=== PATIENT | male | born 1995 | race Two or more races ===

== ENCOUNTER 2020-01-20 19:27 | Emergency (ER) | payer OTHER, SELFPAY ==
--- NOTE | 2020-01-20 | XR_ITS ---
EXAMINATION: XR CHEST CLINICAL INFORMATION: Cough. COMPARISON: None TECHNIQUE: Frontal portable view of the chest was obtained. 8:06 PM FINDINGS: No significant abnormality is noted involving the heart, lungs, mediastinum, bony thorax or soft tissues. XR/XR chest 1V IMPRESSION: Unremarkable examination.
[2020-01-20 19:45] VITALS: BP 150/85; PULSE 98; RESP 18; TEMP 36.7; O2SAT 99; BMI 29.2
--- NOTE | 2020-01-20 20:04 | ED.URI ---
HPI - URI/Sore Throat General Chief Complaint: Upper Respiratory Symptoms Stated Complaint: covid symptoms Time Seen by Provider: 01/20/20 19:53 Source: patient Mode of arrival: ambulatory Limitations: language barrier History of Present Illness HPI Narrative: 24-year-old male with past medical history of asthma presents with 1 day of upper respiratory symptoms. States that his chest feels tight and that his asthma symptoms are persistent even with inhaler use. he does have a cough, nasal congestion, and sore throat. He does not report any palpitations, abdominal pain, abdominal distention, fevers, chills, nausea, vomiting, diarrhea, dysuria, and hematuria. MD elicited complaint: cough, sore throat and nasal congestion Pertinent past history: asthma Onset (ago): day(s) ( One) Consistency: constant Severity: moderate Description of mucous: clear Able to tolerate fluids by mouth: Yes Relieving factors: nothing Associated symptoms: denies other symptoms Related Data Previous Rx's Medication Instructions Recorded benzonatate [Tessalon Perles] 100 mg PO TID PRN #20 cap 01/20/20 Allergies Allergy/AdvReac Type Severity Reaction Status Date / Time SEAFOOD Allergy Unknown UNK Uncoded 01/20/20 19:48 Review of Systems Review of Systems: Constitutional: No Fever, No Chills ENT/Mouth: No Hoarseness, No sore throat, No Rhinorrhea Eyes: No Redness, No Discharge, No Vision Changes Cardiovascular: No Chest Pain, positive SOB, positive Dyspnea on Exertion, No Edema Respiratory: positive Cough, No Sputum, positive Wheezing, Gastrointestinal: No Nausea, No Vomiting, No Diarrhea, No abdominal Pain Genitourinary: No Dysuria, No Hematuria Musculoskeletal: No joint pain, No Myalgias Skin: No rash Neuro: No Weakness, No Numbness, No Headache Psych: No anxiety, depression Heme/Lymph: No Bruising, No Bleeding Endocrine: No Polyuria, No Polydipsia PMFSH Past Medical History Attestation statement: The following information was validated with the patient. Medical History Asthma Social History Social History Advance Directives: No Advance Directives Information Provided: No Physical Exam Vital Signs: Vital Signs: Vital Signs Temp Pulse Resp BP Pulse Ox 11/03/20 19:45 98.0 F 98 18 150/85 H 99 Body Mass Index 29.2 Appearance: Alert. Oriented X3. No acute distress. Eyes: Pupils equal, round and reactive to light. ENT: Pharynx normal. Neck: Normal inspection. Neck supple. CVS: Normal heart rate and rhythm. Pulses normal. Respiratory: No respiratory distress. Even unlabored respirations at 16 per minute. Breath sounds expiratory wheezing bilateral bases. Abdomen: Soft and nontender. Skin: Skin warm and dry. Normal skin color. Normal skin turgor. Extremities: No lower extremity edema. Neuro: No motor deficit. No sensory deficit. Course Course Course Narrative: plan is for chest x-ray and COVID-19 testing. Respirations are even, unlabored 16 per minute, no indication of asthma exacerbation at this time. O2 sat 99% on room air. Mild expiratory wheezing at bases. Chest x-ray is normal, COVID-19 test still pending. Patient will be discharged home with supportive measures. He does verbalize understanding of state Federal regulations for COVID-19 isolation. Symptoms are most likely viral syndrome, possible COVID-19, less likely pneumonia. strap folding machine operator utilized for all correspondence. Google translate utilized for discharge instructions. MDM - URI/Sore Throat Differential Diagnosis Differential diagnosis: Likely upper respiratory infection, viral infection, bronchitis, influenza and pharyngitis Medical Records Attestation: I reviewed the patient's medical records. Lab Data Attestation: I reviewed the patient's lab results. Imaging Data Chest x-ray: Attestation: I personally reviewed and interpreted this imaging study as follows: Radiologist's impression: EXAMINATION: XR CHEST CLINICAL INFORMATION: Cough. COMPARISON: None TECHNIQUE: Frontal portable view of the chest was obtained. 8:06 PM FINDINGS: No significant abnormality is noted involving the heart, lungs, mediastinum, bony thorax or soft tissues. XR/XR chest 1V IMPRESSION: Unremarkable examination. Discharge Plan Discharge Clinical Impression: Viral infection Upper respiratory infection Qualifiers: URI type: unspecified viral URI Qualified Code(s): J06.9 - Acute upper respiratory infection, unspecified Patient Disposition: Home, Self-Care Instructions: Upper Respiratory Infection (ED), Viral Syndrome (ED), COVID-19 (Coronavirus Disease 2019) (ED) Additional Instructions: se le evaluaron para los s?ntomas de las v?as respiratorias superiores. Le hemos probado para COVID-19. Por favor, mantenga el aislamiento seg?n las pautas estatales y federales. Use inhalador de albuterol seg?n sea necesario. Si los s?ntomas persisten o empeoran, por favor regrese al departamento de emergencias para recibir m?s atenci?n. Sánchez por elegir carmen departamento de emergencias para la evaluaci?n. Por favor, ray un seguimiento con el m?dico de atenci?n primaria seg?n sea necesario. Regrese al servicio de urgencias para cualquier s?ntoma nuevo, preocupante o que empeore. you were evaluated for upper respiratory symptoms. We tested you for COVID-19. Please maintain isolation per State And Federal guidelines. Use albuterol inhaler as needed. If symptoms persist or get worse please return to the emergency department for further care. Thank you for choosing this emergency department for evaluation. Please follow-up with primary care physician as needed. Return to the emergency department for any new, concerning, or worsening symptoms. Prescriptions: New benzonatate [Tessalon Perles] 100 mg capsule 100 mg PO TID PRN (Reason: cough) Qty: 20 RF: 0 Print Language: Kinyarwanda
--- NOTE | 2020-01-20 20:48 | PC.NURSE ---
Pt awaiting covid result. non-diagnostic cxr results back and explained to pt by CYLINDER MACHINE OPERATOR PULP DRIER. plan for updraft and discharge
[2020-01-20] MEDS: Albuterol Sulfate 90 MCG 8 GM INHALER 2 PUFF INHALE (20:55)
== END 2020-01-20 21:15 | disposition home or self-care (01) ==
PROVIDERS: Nurse Practitioner Family; Emergency Provider Internal Medicine
DX: B34.9 Viral infection, unspecified (principal); J45.909 Unspecified asthma, uncomplicated; Z20.828 Contact with and (suspected) exposure to other viral communicable diseases
CPT/HCPCS: 71045; 99283; 99284; U0003

== ENCOUNTER 2020-02-21 18:48 | Emergency (ER) | payer OTHER, SELFPAY ==
[2020-02-21 19:14] VITALS: BP 119/79; PULSE 113; RESP 18; TEMP 36.7; O2SAT 99; BMI 37.3
[2020-02-21 20:34] LABS: Appearance Urine CLEAR; Color Urine YELLOW; Glucose Urine UA NEG (NEG); Leukocyte Esterase Urine NEG (NEG); Nitrite Urine NEG (NEG); Specific Gravity - Urine >= 1.030 (1.005-1.025); Urine Blood NEG (NEG); Urine Ketones NEG (NEG); Urine Protein NEG (NEG-TRACE)
--- NOTE | 2020-02-21 20:37 | ED.MALEGU ---
HPI - Male Genitourinary General Chief complaint: Urogenital-Male Stated complaint: Flank pain Time Seen by Provider: 02/21/20 21:34 Source: patient Mode of arrival: ambulatory Limitations: no limitations History of Present Illness HPI Narrative: 24-year-old male with past medical history of kidney stones presents with left flank pain that started yesterday. States the pain started in the right lower quadrant and radiates around to the left flank. He does have intermittent sweating and felt hot several times Over the past day but did not take a temperature. He denies chest pain or pressure, palpitations, abdominal distention, dysuria, hematuria, trauma, edema, and chills. Onset (ago): day(s) (1) Duration: intermittent Location: left inguinal region and left flank Severity: moderate Severity scale (1-10): 7 Quality: aching, sharp and stabbing Relieving factors: none Associated symptoms: Reports denies other symptoms Related Data Previous Rx's Medication Instructions Recorded benzonatate [Tessalon Perles] 100 mg PO TID PRN #20 cap 01/20/20 Allergies Allergy/AdvReac Type Severity Reaction Status Date / Time seafood AdvReac Dizziness Verified 02/21/20 19:14 Review of Systems Review of Systems: Constitutional: No Fever, No Chills ENT/Mouth: No sore throat Eyes: No Eye Pain, No Swelling, No Redness Cardiovascular: No Chest Pain, No SOB Respiratory: No Cough, No Sputum, No Wheezing Gastrointestinal: No Nausea, no Vomiting, No Diarrhea, positive abdominal pain Genitourinary: no Dysuria, no urinary frequency, no Hematuria, positive Flank Pain, no hesitancy Musculoskeletal: No joint pain, No Myalgias Skin: No Skin Lesions, No rash Neuro: No Weakness, No Numbness, No Headache Psych: No Anxiety/Panic, No Depression Heme/Lymph: No Bruising, No Lymphadenopathy Endocrine: No Polyuria, No Polydipsia Yes all other systems are reviewed and are negative [facility] Past Medical History Attestation statement: The following information was validated with the patient. Source: old records reviewed Medical History Asthma Social History Social History Advance Directives: No Advance Directives Information Provided: Yes Physical Exam Vital Signs: Vital Signs: Last Vital Signs Temp 98.0 F 02/21/20 19:14 Pulse 84 02/21/20 22:00 Resp 18 02/21/20 22:00 BP 140/65 H 02/21/20 22:00 Pulse Ox 100 02/21/20 22:00 Body Mass Index 37.3 Appearance: Alert. Oriented X3. No acute distress. Eyes: Pupils equal, round and reactive to light. ENT: Pharynx normal. Neck: Normal inspection. Neck supple. CVS: Normal heart rate and rhythm. Pulses normal. Respiratory: No respiratory distress. Breath sounds normal. Abdomen: Soft and tender to palpation to the left lower quadrant, positive CVA tenderness to the left side Skin: Skin warm and dry. Normal skin color. Normal skin turgor. Extremities: No lower extremity edema. Neuro: No motor deficit. No sensory deficit. Course Course Course Narrative: 24-year-old male with past medical history of kidney stones presents with left flank pain. Plan of care is for CBC, Chem 7, LFTs, lipase and CT scan of the abdomen. CT scan is negative for acute findings requiring emergent intervention however does indicate fatty liver disease. CBC normal, gap 11, BUN 8, AST 412, ALT 444. urinalysis is negative. Plan of care is for patient to follow-up with primary care physician for fatty liver disease and elevated liver enzymes. We did give her referral for Gastroenterology if he chooses. Patient verbalized understanding of and agrees to plan of care discharge home. dependency director utilized for all correspondence, Google translate utilized for discharge instructions. MDM - Male Genitourinary MDM Narrative Medical decision making narrative: Renal colic, hydronephrosis, constipation, pancreatitis, liver disease Differential Diagnosis Differential diagnosis: Likely urinary tract infection and inguinal hernia Medical Records Attestation: I reviewed the patient's medical records. Lab Data Attestation: I reviewed the patient's lab results. Result diagrams: 02/21/20 20:57 02/21/20 20:57 Labs: Lab Results 02/21/20 02/21/20 02/21/20 Range/Units 20:27 20:57 20:57 WBC 7.3 (4.8-10.8) X10*3/uL RBC 5.14 (4.60-5.80) X10*6/uL Hgb 13.9 L (14.0-18.0) g/dl Hct 42.5 (42-52) % MCV 82.7 (80-98) fL MCH 27.0 (27.0-33.0) pg MCHC 32.7 (31.0-36.0) g/dl RDW 14.4 (11.0-16.0) % Plt Count 278 (160-400) X10*3/uL MPV 8.9 L (9.4-12.4) fL Immature Gran % (Auto) 1.5 H (0.0-0.4) % Neut % (Auto) 59.9 (45-73) % Lymph % (Auto) 22.3 (20-40) % [place] % (Auto) 13.5 H (2-11) % Eos % (Auto) 2.2 (0-4) % Baso % (Auto) 0.6 (0-2) % Lymph # (Auto) 1.6 (1.2-4.9) X10*3/uL [place] # (Auto) 1.0 (0.1-1.2) X10*3/uL Eos # (Auto) 0.2 (0.0-0.4) X10*3/uL Baso # (Auto) 0.0 (0.0-0.2) X10*3/uL Abs Immat Gran (auto) 0.11 H (0.00-0.03) X10*3/uL Absolute Neuts (auto) 4.4 (2.0-8.3) X10*3/uL Absolute Nucleated RBC 0.000 (0.0-0.012) X10*3/uL Nucleated RBC % (auto) 0.0 (0.0-0.2) /100WBC Sodium 135 (135-145) mmol/L Potassium 3.9 (3.3-5.1) mmol/l Chloride 101 (96-108) mmol/L Carbon Dioxide 27 (22-29) mmol/L Anion Gap 11 L (12-20) BUN 8 L (9-16) mg/dL Creatinine 0.91 (0.5-1.4) mg/dL Estim Creat Clear Calc 194.1 Estimated GFR > 60 Random Glucose 84 (60-115) mg/dL Calcium 9.2 (8.4-10.2) mg/dL Total Bilirubin 0.6 (0.0-1.0) mg/dL Direct Bilirubin 0.2 (0.0-0.5) mg/dL AST 412 H (5-37) U/L ALT 444 H (0-40) U/L Alkaline Phosphatase 58 (39-117) U/L Total Protein 7.9 (6.5-8.0) g/dL Albumin 4.3 (3.5-5.0) g/dL Lipase 22 (8-78) U/L Urine Color YELLOW Urine Appearance CLEAR Urine pH 6.0 (5.0-8.0) Ur Specific [place] >= 1.030 H (1.005-1.025) Urine Protein NEG (NEG-TRACE) MG/DL Urine Glucose (UA) NEG (NEG) MG/DL Urine Ketones NEG (NEG) MG/DL Urine Blood NEG (NEG) Urine Nitrite NEG (NEG) Ur Leukocyte Esterase NEG (NEG) Imaging Data CT scan - abdomen: Attestation: I personally reviewed and interpreted this imaging study as follows: Radiologist's impression: FINDINGS: LUNG BASES: The visualized lung bases are unremarkable. LIVER, GALLBLADDER, AND BILIARY TREE: The liver is enlarged measuring 21.8 cm in greatest length. Again seen is hepatic steatosis with focal fatty sparing around the gallbladder. No focal liver mass is seen and no bile duct dilatation is present. The gallbladder is unremarkable with no evidence of radiopaque gallstones, gallbladder wall thickening, or obvious pericholecystic inflammatory changes. PANCREAS: Unremarkable. SPLEEN: Unremarkable. ADRENAL GLANDS: Unremarkable. KIDNEYS AND URETERS: The kidneys are normal in size, shape, and attenuation. No hydronephrosis, hydroureter, or calculi seen. No perinephric stranding. BLADDER: Unremarkable. GASTROINTESTINAL TRACT: The small and large bowel are unremarkable. The appendix is unremarkable. ABDOMINAL WALL: No significant hernia is appreciated. LYMPH NODES: Normal. VASCULAR: Unremarkable. PELVIC VISCERA: Unremarkable. OSSEOUS STRUCTURES: Unremarkable. CT/CT abdomen pelvis wo con IMPRESSION: Enlarged fatty liver Discharge Plan Discharge Clinical Impression: Acute left flank pain, NAFLD (nonalcoholic fatty liver disease) Abdominal pain Qualifiers: Abdominal location: left lower quadrant Qualified Code(s): R10.32 - Left lower quadrant pain Patient Disposition: Home, Self-Care Instructions: Non-Alcoholic Fatty Liver Disease (ED) Additional Instructions: se le evalu? para el dolor en el flanco zen. La tomograf?a computarizada es negativa para los c?lculos renales o los hallazgos que necesitan intervenci?n emergente. Arielle laboratorios indican un AST elevado de 412 y aravind ALT de 444, la tomograf?a computarizada muestra enfermedad del h?gado graso. Por favor, ray un seguimiento con el m?dico de atenci?n primaria para obtener m?s atenci?n. tambi?n hicimos aravind referencia a Gastroenterolog?a. Llame y ray aravind peña. Sánchez por elegir carmen departamento de emergencias para la evaluaci?n. Por favor, ray un seguimiento con el m?dico de atenci?n primaria seg?n sea necesario. Regrese al servicio de urgencias para cualquier s?ntoma nuevo, preocupante o que empeore. you were evaluated for left flank pain. CT scan is negative for kidney stone or findings needing emergent intervention. Your labs indicate an elevated AST of 412 and an ALT of 444, CT scan shows fatty liver disease. Please follow-up with primary care physician for further care. we also made a referral to Gastroenterology. Please call and make an appointment. Thank you for choosing this emergency department for evaluation. Please follow-up with primary care physician as needed. Return to the emergency department for any new, concerning, or worsening symptoms. Prescriptions: No Action benzonatate [Tessalon Perles] 100 mg capsule 100 mg PO TID PRN (Reason: cough) Qty: 20 RF: 0 Referrals: Alfredito García MD [Physician] - 2 days Interventions: ED Discharge Assessment Last Done: 02/21/20 22:50 Discharge Date/Time: 02/21/20 22:53
--- NOTE | 2020-02-21 20:38 | CT_ITS ---
EXAMINATION: CT ABDOMEN AND PELVIS WITHOUT CONTRAST CLINICAL INFORMATION: Left flank pain COMPARISON: Abdominal ultrasound 01/31/2019 TECHNIQUE: Multidetector volumetric imaging was performed from the superior aspect of the liver through the pubic symphysis. Sagittal and coronal reformatted images were obtained on the technologist's workstation. This CT examination was performed using dose optimization techniques as appropriate, variously including the following: *Automated exposure control *Adjustment of mA and/or kV according to patient size (this includes techniques or standardized protocols for targeted exams where dose is matched to indication/reason for exam; i.e. extremities or head) *Use of iterative reconstruction technique DLP: 1185 mGy-cm FINDINGS: LUNG BASES: The visualized lung bases are unremarkable. LIVER, GALLBLADDER, AND BILIARY TREE: The liver is enlarged measuring 21.8 cm in greatest length. Again seen is hepatic steatosis with focal fatty sparing around the gallbladder. No focal liver mass is seen and no bile duct dilatation is present. The gallbladder is unremarkable with no evidence of radiopaque gallstones, gallbladder wall thickening, or obvious pericholecystic inflammatory changes. PANCREAS: Unremarkable. SPLEEN: Unremarkable. ADRENAL GLANDS: Unremarkable. KIDNEYS AND URETERS: The kidneys are normal in size, shape, and attenuation. No hydronephrosis, hydroureter, or calculi seen. No perinephric stranding. BLADDER: Unremarkable. GASTROINTESTINAL TRACT: The small and large bowel are unremarkable. The appendix is unremarkable. ABDOMINAL WALL: No significant hernia is appreciated. LYMPH NODES: Normal. VASCULAR: Unremarkable. PELVIC VISCERA: Unremarkable. OSSEOUS STRUCTURES: Unremarkable. CT/CT abdomen pelvis wo con IMPRESSION: Enlarged fatty liver
[2020-02-21 21:04] LABS: MANUAL DIFF FLAG NO
[2020-02-21 21:07] LABS: Basophils Percent Auto 0.6 % (0-2); Eosinophils Absolute Auto 0.2 X10*3/uL (0.0-0.4); Eosinophils Percent Auto 2.2 % (0-4); Hematocrit 42.5 % (42-52); Hemoglobin 13.9 g/dl (14.0-18.0); Imm Gran Abs Auto 0.11 X10*3/uL (0.00-0.03); Imm Gran Pct Auto 1.5 % (0.0-0.4); Lymphocytes Absolute Auto 1.6 X10*3/uL (1.2-4.9); Lymphocytes Percent Auto 22.3 % (20-40); Mean Corpuscular HGB Conc 32.7 g/dl (31.0-36.0); Mean Corpuscular Volume 82.7 fL (80-98); Mean Platelet Volume 8.9 fL (9.4-12.4); Monocytes Percent Auto 13.5 % (2-11); Neutrophils Absolute Auto 4.4 X10*3/uL (2.0-8.3); Neutrophils Percent Auto 59.9 % (45-73); Platelet Count 278 X10*3/uL (160-400); Red Blood Count 5.14 X10*6/uL (4.60-5.80); Red Cell Distribution Width 14.4 % (11.0-16.0); White Blood Count 7.3 X10*3/uL (4.8-10.8)
[2020-02-21] MEDS: 0.9 % Sodium Chloride 1,000 ML 999 ML IVCONT (21:38)
[2020-02-21 21:39] LABS: Alanine Aminotransferase 444 U/L (0-40); Albumin Level 4.3 g/dL (3.5-5.0); Alkaline Phosphatase 58 U/L (39-117); Anion Gap 11 (12-20); Aspartate Amino Transferase 412 U/L (5-37); Bilirubin Direct 0.2 mg/dL (0.0-0.5); Bilirubin Total 0.6 mg/dL (0.0-1.0); Blood Urea Nitrogen 8 mg/dL (9-16); Calcium 9.2 mg/dL (8.4-10.2); Carbon Dioxide 27 mmol/L (22-29); Chloride 101 mmol/L (96-108); Creatinine Clr Calc Pharmacy 194.1; Estimated Glomerular Filt Rate > 60; Glucose Random 84 mg/dL (60-115); Lipase 22 U/L (8-78); Potassium 3.9 mmol/l (3.3-5.1); Sodium 135 mmol/L (135-145); Total Protein 7.9 g/dL (6.5-8.0)
[2020-02-21] MEDS: Tamsulosin HCL 0.4 MG CAPSULE PO (21:39)
[2020-02-21] MEDS: predniSONE 20 MG TABLET PO (21:39)
[2020-02-21] MEDS: Ketorolac Tromethamine 30 MG/ML VIAL IVPUSH (21:39)
[2020-02-21 22:00] VITALS: BP 140/65; PULSE 84; RESP 18; O2SAT 100
== END 2020-02-21 22:53 | disposition home or self-care (01) ==
PROVIDERS: Nurse Practitioner Family; Emergency Provider Emergency Medicine; PCP Internal Medicine
DX: R10.32 Left lower quadrant pain (principal); R10.9 Unspecified abdominal pain; K76.0 Fatty (change of) liver, not elsewhere classified; J45.909 Unspecified asthma, uncomplicated; Z87.442 Personal history of urinary calculi
CPT/HCPCS: 36415; 74176; 80048; 80076; 81003; 83690; 85025; 96361; 96374; 99284; J1885

== ENCOUNTER 2020-02-25 10:14 | Outpatient (REF) | payer OTHER, SELFPAY | END 2020-02-25 10:15 | disposition home or self-care (01) | LOC: HO.LAB 10:14 | PROVIDERS: Visit Provider Internal Medicine | DX: Z20.828 Contact with and (suspected) exposure to other viral communicable diseases (principal) | CPT/HCPCS: C9803; U0003 ==

== ENCOUNTER 2020-03-09 16:38 | Outpatient (REF) | payer OTHER, SELFPAY | END 2020-03-09 16:39 | disposition home or self-care (01) | LOC: HO.LAB 16:38 | PROVIDERS: Visit Provider Internal Medicine | DX: Z20.828 Contact with and (suspected) exposure to other viral communicable diseases (principal) | CPT/HCPCS: C9803; U0003 ==

== ENCOUNTER 2020-07-16 18:27 | Emergency (ER) | payer OTHER, SELFPAY ==
[2020-07-16 18:53] VITALS: BP 130/70; PULSE 60; O2SAT 95
== END 2020-07-16 18:53 | disposition left against medical advice (07) ==
PROVIDERS: Emergency Provider Emergency Medicine
DX: R06.02 Shortness of breath (principal); J45.909 Unspecified asthma, uncomplicated

== ENCOUNTER 2022-08-20 20:22 | Emergency (ER) | payer OTHER, SELFPAY ==
--- NOTE | ~2022-08-20 | XR_ITS ---
EXAMINATION: XR CHEST, 2 VIEWS CLINICAL INFORMATION: Chest pain COMPARISON: 01/20/2020 TECHNIQUE: PA and lateral views of the chest were obtained. FINDINGS: Mild dependent atelectasis at the left base. No consolidation, pneumothorax, or pleural effusion. Cardiac and mediastinal contours are normal. Pulmonary vasculature is unremarkable. Trachea is midline. Osseous structures are unremarkable. XR/XR chest 1V IMPRESSION: No acute cardiopulmonary findings.
[2022-08-20 20:31] VITALS: BP 143/85; PULSE 102; RESP 18; TEMP 36.2; O2SAT 96; BMI 36.1
--- NOTE | 2022-08-20 20:32 | ED.GENADULT ---
HPI - General Adult General Chief complaint: Chest Pain Stated complaint: chest pain Time Seen by Provider: 08/20/22 21:10 Source: patient and family Mode of arrival: ambulatory Limitations: no limitations History of Present Illness HPI narrative: 27-year-old male came in for evaluation of left-sided chest pain started 2 days ago. 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 Daughter was sick last week with some viral infection and fever. Related Data Previous Rx's Medication Instructions Recorded acetaminophen 500 mg tablet 500 - 1,000 mg PO Q6H PRN pain #30 08/03/21 tabs cyclobenzaprine 5 mg tablet 5 mg PO BEDTIME #14 tabs 08/03/21 diclofenac sodium 1 % topical gel 2 g topical QID #100 grams 08/03/21 (Voltaren Arthritis Pain) nabumetone 500 mg tablet 500 mg PO BID #30 tabs 08/03/21 Allergies Allergy/AdvReac Type Severity Reaction Status Date / Time shellfish derived Allergy Anaphylaxis Verified 08/20/22 21:42 seafood AdvReac Dizziness Verified 08/20/22 20:31 Review of Systems Review of Systems: All other systems are reviewed and are negative Constitutional: Reports as per HPI and Reports no additional constitutional complaints Eyes: Reports as per HPI and Reports no additional eye complaints Reports system reviewed and no additional complaints, except as documented Cardiovascular: Reports as per HPI and Reports no additional cardiovascular complaints Respiratory: Reports as per HPI and Reports no additional respiratory complaints Gastrointestinal: Reports as per HPI and Reports no additional gastrointestinal complaints Genitourinary: Reports no additional female genitourinary complaints Musculoskeletal: Reports no additional musculoskeletal complaints Skin/Breast: Reports system reviewed and no additional complaints, except as docu Psychiatric: Reports no additional psychiatric complaints Endocrine: Reports no additional endocrine complaints Hematologic/Lymphatic: Reports no additional hematologic/lymphatic complaints Allergic/Immunologic: Reports no additional allergic/immunologic complaints Reports system reviewed and no additional complaints, except as documented and Reports Abnormal speech present [facility] Past Medical History Medical History Asthma Surgical History Hx of bilateral breast reduction surgery Family History Family History Mother Hypertension Panic attacks Mental health disorder Father Hypertension Social History Social History Housing: Apartment Alcohol intake: former Patient Tobacco Use Status: Never used Tobacco Smoked in Last 30 Days: Yes e-Cigarette/Vaping Use: Never Used Second Hand Smoke Exposure: No Use of substances other than those prescribed or required for medical reasons: Yes Substance Use Type: Marijuana Substance Use Frequency: Chronic Longstanding Last Used Substance: Hours (ago) Any prior treatment program specific to substance use: No Advance Directives: No Advance Directives Information Provided: No service: No Current occupational status: employed Current occupational exposures/hazards: No Cognitive needs: No Hearing needs: No Vision needs: No Physical Exam ED Vital Signs: Vital Signs - 24 hr 08/20/22 20:31 08/20/22 21:14 08/20/22 22:00 Temperature 97.2 F 98.3 F 97.7 F Pulse Rate 102 H 85 85 Respiratory Rate 18 16 16 Blood Pressure 143/85 H 121/65 126/79 Pulse Oximetry 96 98 98 Oxygen Delivery Method Room Air Room Air Room Air 08/20/22 22:34 Temperature 97.7 F Pulse Rate 87 Respiratory Rate 13 Blood Pressure 126/74 Pulse Oximetry 97 Oxygen Delivery Method Room Air BMI result Body Mass Index 36.1 Vital signs have been reviewed as appeared to be correct. Blood pressure normal. Heart rate normal. Respiration rate normal. Temperature normal. Oxygen saturation normal. Appearance: Alert. Oriented X3. No acute distress. Head: Normal external exam. Normocephalic. Atraumatic. No Ludwig signs noted. No raccoon eyes noted Eyes: PERRLA. EOMI. Conjunctiva and sclera normal. Eyelids normal. ENT: TM's Normal. Pharynx normal. Uvula midline. Moist mucous membranes. No trismus noted. No drooling noted. No muffled voice noted. Neck: Normal inspection. Neck supple. FROM. No adenopathy. Thyroid Normal. No meningeal signs. No neck mass noted. CVS: Normal heart rate and rhythm. Heart sound normal. No murmurs noted. Pulses normal throughout. Respiratory: No respiratory distress. Painless inspiration. Breath sounds normal. No wheezes/rales/rhonchi noted. Chest nontender. No accessory muscle usage noted or decreased air movement noted. Abdomen: Soft and nontender. Bowel sounds normal in all 4 quadrants. No distention noted. No organomegaly noted. No visible injury noted. Back: No CVA tenderness. Full range of motion noted. Skin: Skin warm and dry. Normal skin color. Normal skin turgor. No rashes/lesions/lacerations noted. Extremities: No lower extremity edema. Extremities exhibit normal range of motion. Extremities nontender. Neuro: Oriented X 3. Cranial nerve exam: II-XII are grossly intact No motor deficit. No sensory deficit. Reflexes normal. Course Course Course Narrative: RmE; 27 yold male presents to the ED for chest pain described as pressure. Denies any leg sweling, calf pain, recent long travel, or recent surgery. labs, EkG Reevaluation(s) Reevaluation #1: Left-sided chest pain that is reproducible to tenderness, unremarkable EKG, labs, chest x-ray, low risk for ACS/PE/DVT. Negative D-dimer. Will reassure recommend NSAIDs if needed for pain. Time: 22:05 Medications Administered Discontinued Medications Generic Name Dose Route Start Last Admin Trade Name Sameerq PRN Reason Stop Dose Admin Ibuprofen 600 mg 08/20/22 22:30 08/20/22 22:34 Ibuprofen 600 Mg Tablet PO 08/20/22 22:31 600 mg ONCE ONE Administration Medical Decision Making Differential Diagnosis Differential Diagnoses: The differential diagnosis associated with the presentation includes (ACS, pneumonia, pneumothorax, electrolyte abnormalities, severe anemia.) Admission/Observation Consideration of admission/observation: Escalation of care including admission/observation considered Lab Data MDM Lab Attestation statement: I reviewed the patient's lab results. 08/20/22 20:36 08/20/22 20:36 Labs: Lab Results 08/20/22 08/20/22 08/20/22 Range/Units 20:36 20:36 20:36 WBC 16.5 H (4.8-10.8) X10*3/uL RBC 5.01 (4.60-5.80) X10*6/uL Hgb 13.2 L (14.0-18.0) g/dl Hct 40.5 L (42.0-52.0) % MCV 80.8 (80.0-98.0) fL MCH 26.3 L (27.0-33.0) pg MCHC 32.6 (31.0-36.0) g/dl RDW 13.9 (11.0-16.0) % Plt Count 358 (160-400) X10*3/uL MPV 8.4 L (9.4-12.4) fL Immature Gran % (Auto) 2.5 H (0.0-0.4) % Neut % (Auto) 70.4 (45-73) % Lymph % (Auto) 20.1 (20-40) % [place] % (Auto) 4.4 (2-11) % Eos % (Auto) 2.1 (0-4) % Baso % (Auto) 0.5 (0-2) % Lymph # (Auto) 3.3 (1.2-4.9) X10*3/uL [place] # (Auto) 0.7 (0.1-1.2) X10*3/uL Eos # (Auto) 0.4 (0.0-0.4) X10*3/uL Baso # (Auto) 0.1 (0.0-0.2) X10*3/uL Abs Immat Gran (auto) 0.41 H (0.00-0.03) X10*3/uL Absolute Neuts (auto) 11.6 H (2.0-8.3) x10*3/uL Absolute Nucleated RBC 0.000 (0.0-0.012) X10*3/uL Nucleated RBC % (auto) 0.0 (0.0-0.2) /100WBC PT 12.0 (10.0-13.1) SEC INR 1.0 (0.9-1.1) APTT 27.2 (26.0-36.4) SEC D-Dimer High Sensitivty < 150 NG/ML Sodium 140 (135-145) mmol/L Potassium 3.6 (3.3-5.1) mmol/L Chloride 104 (96-108) mmol/L Carbon Dioxide 28 (22-29) mmol/L Anion Gap 12 (12-20) BUN 11 (9-16) mg/dL Creatinine 0.97 (0.5-1.4) mg/dL Estim Creat Clear Calc 174.2 Estimated GFR > 60 Random Glucose 109 (60-115) mg/dL Calcium 9.7 (8.4-10.2) mg/dL Total Bilirubin 0.4 (0.0-1.0) mg/dL AST 18 (5-37) U/L ALT 23 (0-40) U/L Alkaline Phosphatase 62 (39-117) U/L Troponin I High Sens (<3.5-35.0) ng/L B-Natriuretic Peptide (<100) pg/mL Total Protein 7.8 (6.5-8.0) g/dL Albumin 4.1 (3.5-5.0) g/dL 08/20/22 08/20/22 Range/Units 20:36 20:36 WBC (4.8-10.8) X10*3/uL RBC (4.60-5.80) X10*6/uL Hgb (14.0-18.0) g/dl Hct (42.0-52.0) % MCV (80.0-98.0) fL MCH (27.0-33.0) pg MCHC (31.0-36.0) g/dl RDW (11.0-16.0) % Plt Count (160-400) X10*3/uL MPV (9.4-12.4) fL Immature Gran % (Auto) (0.0-0.4) % Neut % (Auto) (45-73) % Lymph % (Auto) (20-40) % [place] % (Auto) (2-11) % Eos % (Auto) (0-4) % Baso % (Auto) (0-2) % Lymph # (Auto) (1.2-4.9) X10*3/uL [place] # (Auto) (0.1-1.2) X10*3/uL Eos # (Auto) (0.0-0.4) X10*3/uL Baso # (Auto) (0.0-0.2) X10*3/uL Abs Immat Gran (auto) (0.00-0.03) X10*3/uL Absolute Neuts (auto) (2.0-8.3) x10*3/uL Absolute Nucleated RBC (0.0-0.012) X10*3/uL Nucleated RBC % (auto) (0.0-0.2) /100WBC PT (10.0-13.1) SEC INR (0.9-1.1) APTT (26.0-36.4) SEC D-Dimer High Sensitivty NG/ML Sodium (135-145) mmol/L Potassium (3.3-5.1) mmol/L Chloride (96-108) mmol/L Carbon Dioxide (22-29) mmol/L Anion Gap (12-20) BUN (9-16) mg/dL Creatinine (0.5-1.4) mg/dL Estim Creat Clear Calc Estimated GFR Random Glucose (60-115) mg/dL Calcium (8.4-10.2) mg/dL Total Bilirubin (0.0-1.0) mg/dL AST (5-37) U/L ALT (0-40) U/L Alkaline Phosphatase (39-117) U/L Troponin I High Sens < 2.7 (<3.5-35.0) ng/L B-Natriuretic Peptide < 10 (<100) pg/mL Total Protein (6.5-8.0) g/dL Albumin (3.5-5.0) g/dL Independent Interpretation I performed an independent interpretation of an: EKG (Normal sinus rhythm at 95 beats per minute, normal axis deviation, normal intervals, no ST-T changes.) and Plain X-Ray (No acute intrathoracic pathology.) Radiology Impression Discussion of test interpretation with radiology: I have reviewed the radiologist's reading. Discharge Plan Discharge Clinical Impression: Atypical chest pain Patient Disposition: Home, Self-Care Instructions: Chest Wall Pain (ED) Prescriptions: No Action nabumetone 500 mg tablet 500 mg PO BID Qty: 30 0RF acetaminophen 500 mg tablet 500 - 1,000 mg PO Q6H PRN (Reason: pain) Qty: 30 0RF diclofenac sodium [Voltaren Arthritis Pain] 1 % gel 2 g topical QID Qty: 100 0RF Rx Instructions: apply to single elbow, wrist or hand; for hand includes palm/fingers/back of hand cyclobenzaprine 5 mg tablet 5 mg PO BEDTIME Qty: 14 0RF Referrals: Po,Danitza Dickinson MD [Primary Care Provider] - Stand Alone Forms: Work/School Release Interventions: ED Discharge Assessment Last Done: 08/20/22 22:20 Discharge Date/Time: 08/20/22 22:43
--- NOTE | 2022-08-20 20:33 | ECG_ITS ---
Test Reason : CHEST PAIN Blood Pressure : / mmHG Vent. Rate : 095 BPM Atrial Rate : 095 BPM P-R Int : 152 ms QRS Dur : 090 ms QT Int : 356 ms P-R-T Axes : 060 048 042 degrees QTc Int : 447 ms Normal sinus rhythm Normal ECG No previous ECGs available Referred By: Gumaro Camacho Electronically Signed By:Luis Caballero
[2022-08-20 20:45] LABS: MANUAL DIFF FLAG NO
[2022-08-20 20:48] LABS: Basophils Absolute Auto 0.1 X10*3/uL (0.0-0.2); Basophils Percent Auto 0.5 % (0-2); Eosinophils Absolute Auto 0.4 X10*3/uL (0.0-0.4); Eosinophils Percent Auto 2.1 % (0-4); Hematocrit 40.5 % (42.0-52.0); Hemoglobin 13.2 g/dl (14.0-18.0); Imm Gran Abs Auto 0.41 X10*3/uL (0.00-0.03); Imm Gran Pct Auto 2.5 % (0.0-0.4); Lymphocytes Absolute Auto 3.3 X10*3/uL (1.2-4.9); Lymphocytes Percent Auto 20.1 % (20-40); Mean Corpuscular HGB Conc 32.6 g/dl (31.0-36.0); Mean Corpuscular Hemoglobin 26.3 pg (27.0-33.0); Mean Corpuscular Volume 80.8 fL (80.0-98.0); Mean Platelet Volume 8.4 fL (9.4-12.4); Monocytes Absolute Auto 0.7 X10*3/uL (0.1-1.2); Monocytes Percent Auto 4.4 % (2-11); Neutrophils Absolute Auto 11.6 x10*3/uL (2.0-8.3); Neutrophils Percent Auto 70.4 % (45-73); Platelet Count 358 X10*3/uL (160-400); Red Blood Count 5.01 X10*6/uL (4.60-5.80); Red Cell Distribution Width 13.9 % (11.0-16.0); White Blood Count 16.5 X10*3/uL (4.8-10.8)
[2022-08-20 21:00] LABS: Alanine Aminotransferase 23 U/L (0-40); Albumin Level 4.1 g/dL (3.5-5.0); Alkaline Phosphatase 62 U/L (39-117); Anion Gap 12 (12-20); Aspartate Amino Transferase 18 U/L (5-37); Bilirubin Total 0.4 mg/dL (0.0-1.0); Blood Urea Nitrogen 11 mg/dL (9-16); Calcium 9.7 mg/dL (8.4-10.2); Carbon Dioxide 28 mmol/L (22-29); Chloride 104 mmol/L (96-108); Creatinine Clr Calc Pharmacy 174.2; Estimated Glomerular Filt Rate > 60; Glucose Random 109 mg/dL (60-115); Potassium 3.6 mmol/L (3.3-5.1); Sodium 140 mmol/L (135-145); Total Protein 7.8 g/dL (6.5-8.0)
[2022-08-20 21:02] LABS: Partial Thromboplastin Time 27.2 SEC (26.0-36.4)
[2022-08-20 21:06] LABS: B Type Natriuretic Peptide < 10 pg/mL (<100)
[2022-08-20 21:14] VITALS: BP 121/65; PULSE 85; RESP 16; TEMP 36.8; O2SAT 98
[2022-08-20 21:14] LABS: Troponin-I High Sensitivity < 2.7 ng/L (<3.5-35.0)
--- NOTE | 2022-08-20 21:15 | MHC.EDTECH ---
THIS PCT JUST ASSUMED CARE OF PATIENT ,PATIENT WAS HOOKED UP TO PARK AIDE ,VITALS SIGN TAKEN ,PT AT BEDSIDE .
[2022-08-20 21:30] LABS: D Dimer High Sensitivity < 150 NG/ML
[2022-08-20 21:50] VITALS: PULSE 83
[2022-08-20 22:00] VITALS: BP 126/79; PULSE 85; RESP 16; TEMP 36.5; O2SAT 98
--- NOTE | 2022-08-20 22:00 | PC.NURSE ---
Patient is AAOX4 patient [id number] he is in pain 09/25 patient ststed the pain has been for 3 days patient vitals are stable patient stated he is a smoker he last smoke 3 hours ago marijuana patient drinks occasionally patient head to toe assessment was performed with no issues patient skin is intact patient skin [id number] patient stated he has no medical issues patient stated that HTN runs in his family patient stated he is allergic to shellfish patient is at the bedside patient is waiting to be seen by the doctor patient doctor will be notified of the pain status safety will be maintained is at the bedside
--- NOTE | 2022-08-20 22:13 | MHC.EDTECH ---
2200 rounding done ,vitals sign taken ,pt waiting for discharge paper work .
--- NOTE | 2022-08-20 22:22 | PC.NURSE ---
Discharge instructions given and explained to pt no apparent distress no sob aox4 able to speak in full sentences ambulates safely and independently IV cath tip intact upon removal all of pt's questions answered
--- NOTE | 2022-08-20 22:30 | PC.NURSE ---
verbal order from Dr Ball for 600 mg ibuprofen PO entered to be administered to pt
[2022-08-20 22:34] VITALS: BP 126/74; PULSE 87; RESP 13; TEMP 36.5; O2SAT 97
[2022-08-20] MEDS: Ibuprofen 600 MG TABLET PO (22:34)
--- NOTE | 2022-08-20 22:34 | PC.NURSE ---
administered 600 mg ibuprofen PO per MAR
== END 2022-08-20 22:43 | disposition home or self-care (01) ==
PROVIDERS: Physician Assistant; Emergency Provider Emergency Medicine; PCP Internal Medicine
DX: R07.89 Other chest pain (principal); R06.02 Shortness of breath; Z79.899 Other long term (current) drug therapy
CPT/HCPCS: 36415; 71045; 80053; 83880; 84484; 85025; 85379; 85610; 85730; 93005; 99284; 99285

== ENCOUNTER 2023-01-16 19:14 | Emergency (ER) | payer MEDICAID, SELFPAY ==
--- NOTE | ~2023-01-16 | CT_ITS ---
EXAMINATION: CT TEMPORAL BONES CLINICAL INFORMATION: Left mastoid tip pain. Left external auditory canal drainage. COMPARISON: None available. TECHNIQUE: Multidetector helical imaging was performed in the axial plane with generation of oblique axial and coronal reformatted projections. This CT examination was performed using dose optimization techniques as appropriate, variously including the following: *Automated exposure control. *Adjustment of mA and/or kV according to patient size (this includes techniques or standardized protocols for targeted exams where dose is matched to indication/reason for exam; i.e. extremities or head). *Use of iterative reconstruction technique. DLP: 365 mGy-cm FINDINGS: LEFT TEMPORAL BONE: The external auditory canal is normal. The tympanic membrane is normal in appearance. The ossicular chain is intact. The middle ear cavity and mastoid air cells are well aerated. The sigmoid sinus has a significantly lateralized course and portions of the osseous sigmoid plate are fairly thinned adjacent to numerous mastoid air cells. The facial nerve follows a normal course. The inner ear structures and internal auditory canal are normal. No inflammatory changes are seen around the mastoid tip. The left auricle appears normal. The left parotid gland is homogeneous in attenuation. The left temporomandibular joint is normal. RIGHT TEMPORAL BONE: There is mild soft tissue thickening along the rocha of the external auditory canal with additional thickening of the tympanic membrane. No osseous erosive changes are seen. The ossicular chain is otherwise intact. The middle ear cavity and mastoid air cells are well aerated. The facial nerve follows a normal course. The inner ear structures and internal auditory canal are normal. The right temporomandibular joint is normal. ADDITIONAL FINDINGS: There is moderate mucosal thickening in the ethmoid air cells with [id number] fluid levels and aerosolized secretions in the sphenoid sinus cavities. There is milder mucosal thickening in the maxillary antra. The orbits are normal in appearance. The imaged portions of the brain demonstrate no acute abnormality. Adenoid tonsillar hypertrophy noted. CT/CT mastoid IMPRESSION: Significantly attenuated appearance of the left bony sigmoid plate with lateralization of the left sigmoid sinus notch. The possibility of a small osseous dehiscence adjacent to mastoid air cells cannot be ruled out. No left-sided mastoid effusion. No soft tissue abnormality in the left external auditory canal. No bony erosive changes. Normal appearance of the soft tissues around the left mastoid bone. Nonspecific soft tissue thickening along the rocha of the right external auditory canal with thickening of the right tympanic membrane. No bony erosive changes. Correlate with findings on direct visual inspection. Moderate ethmoid sinus mucosal thickening with [id number] fluid levels in the sphenoid sinus cavities. Correlate for any symptoms of acute sinusitis.
--- NOTE | 2023-01-16 19:22 | ED_ITS ---
HPI - Ear Problem General Chief complaint: Ear Problems Stated complaint: ?R ear infection Time Seen by Provider: 01/16/23 20:11 Source: patient Mode of arrival: ambulatory History of Present Illness HPI Narrative: 27-year-old male who presents with recurrent ear infections now presents with same, he denies any fevers or chills, denies any difficulty with breathing or swallowing and denies any loss of hearing. Patient has been taking his own penicillin at home. He denies any dental pain or infection and denies any sore throat. Related Data Previous Rx's Medication Instructions Recorded acetaminophen 500 mg tablet 500 - 1,000 mg (1 - 2 x 500 mg) PO 08/03/21 Q6H PRN pain #30 tabs cyclobenzaprine 5 mg tablet 5 mg PO BEDTIME #14 tabs 08/03/21 diclofenac sodium 1 % topical gel 2 g topical QID #100 grams 08/03/21 (Voltaren Arthritis Pain) nabumetone 500 mg tablet 500 mg PO BID #30 tabs 08/03/21 amoxicillin 875 mg-potassium 1 tab PO BID 10 days #20 tabs 01/16/23 clavulanate 125 mg tablet ciprofloxacin 0.2 %-hydrocortisone 3 drp otic (ears) BID 7 days #10 mL 01/16/23 1 % ear drops,suspension (Cipro HC) Allergies Allergy/AdvReac Type Severity Reaction Status Date / Time shellfish derived Allergy Anaphylaxis Verified 08/20/22 21:42 seafood AdvReac Dizziness Verified 08/20/22 20:31 Review of Systems 2 Review of Systems: Pertinent positives and negatives as stated in HPI PMFSH Past Medical History Source: nursing notes reviewed Medical History Asthma Surgical History Hx of bilateral breast reduction surgery Family History Family History Mother Hypertension Panic attacks Mental health disorder Father Hypertension Social History Social History Housing: Apartment Alcohol intake: former Patient Tobacco Use Status: Never used Tobacco e-Cigarette/Vaping Use: Never Used Second Hand Smoke Exposure: No Substance Use Type: Marijuana Advance Directives: No Advance Directives Information Provided: No service: No Current occupational status: employed Current occupational exposures/hazards: No Cognitive needs: No Hearing needs: No Vision needs: No Physical Exam 2 Vital Signs: Vital Signs: Last Vital Signs Temp 98.6 F 01/16/23 19:23 Pulse 73 01/16/23 19:23 Resp 16 01/16/23 19:23 BP 126/76 01/16/23 19:23 Pulse Ox 97 01/16/23 19:23 O2 Del Method Room Air 01/16/23 19:23 BMI result Body Mass Index 35.5 VITAL SIGNS: Reviewed. GENERAL: Well developed, well nourished, in no acute distress. HEAD: Normocephalic/atraumatic EYES: PERRLA, EOMI EARS: RIGHT- Ext canals with erythema/swelling/purulence, TMs bulging and erythematous; LEFT- Ext canals without abnormality, TMs non-bulging and non- erythematous NOSE: Nares patent bilateral OROPHARYNX: no oral lesions noted, posterior pharynx clear and non-erythematous without noted tonsillar enlargement/erythema/exudates there is noted tenderness to palpation over the postauricular area, there is pain on manipulation of the tragus but no pain on manipulation of the Pinnae NECK: Supple, no adenopathy LUNGS: Normal breath sounds. No adventitious sounds or accessory muscle use. SpO2<97> CARDIOVASCULAR: Regular rate and rhythm without noted murmurs ABDOMEN: Soft, non-tender, non-distended with bowel sounds. MUSCULOSKELETAL: No tenderness, deformities, or effusions noted on gross inspection. EXTREMITIES: No cyanosis, clubbing or edema. SKIN: Inspection of the skin reveals no rashes NEUROLOGIC: Alert and oriented x 4. Strength and sensation to light touch were grossly intact x 4. Course Course Course Narrative: RME: 27 year old male w/PMHx fatty liver, anxiety, depression, presenting to the ED complaining of right ear pain x2 months w/associated decreased hearing. Admits to taking Penicillin at home which he has left over in his house. Admits to feeling water in ear but denies drainage +L ear with debris in EAC. TM obscured. +Mastoid ttp Labs, Mastoid CT ordered Full HPI, ROS and PE to be performed by primary ED provider. Medical Decision Making Medical Decision Making MDM Narrative: 27-year-old male with history and clinical presentation most consistent with otitis externa but feel that patient is likely reinfected himself with using ear buds, in addition, patient has been using his own penicillin pills for his own prescribed time course. I do not suspect any mastoiditis and instead think that the tenderness that is being exhibited is secondary to mild adenopathy. Review of all investigations demonstrates that chronically elevated leukocytosis without left shift, chronically stable normocytic anemia and no thrombocytopenia. Chemistry indices do not demonstrate any BECKY, there is no electrolyte abnormalities and CRP is within normal limits, once again arguing against a mastoiditis. My interpretation is that patient is experiencing recurrent otitis externa infection with involvement of the middle ear and associated adenopathy and will be sent home on a course of your drops as well as systemic antibiotics and instructions follow-up with his primary care doctor I discussed the possible referral to ENT. Patient also cautioned regarding reinfection via ear buds. I reviewed the CT scan results which primarily describe left-sided abnormalities for which the patient has no complaints and on clinical exam I do not appreciate any abnormalities of the external or middle ear components. Otherwise, the CT scan is negative for bony abnormalities on the right. Once again, grounds for further evaluation by the ENT specialist and will discharge patient on antibiotics. Differential Diagnosis Differential Diagnoses: The differential diagnosis associated with the presentation includes Please see the discussion above Admission/Observation Consideration of admission/observation: Escalation of care including admission/observation considered Please see the discussion above Lab Data MDM Lab Attestation statement: I reviewed the patient's lab results. Please see the discussion above 01/16/23 20:27 01/16/23 20:27 Labs: Lab Results 01/16/23 Range/Units 20:27 WBC 14.9 H (4.8-10.8) X10*3/uL RBC 5.04 (4.60-5.80) X10*6/uL Hgb 13.9 L (14.0-18.0) g/dl Hct 42.2 (42.0-52.0) % MCV 83.7 (80.0-98.0) fL MCH 27.6 (27.0-33.0) pg MCHC 32.9 (31.0-36.0) g/dl RDW 13.5 (11.0-16.0) % Plt Count 391 (160-400) X10*3/uL MPV 9.0 L (9.4-12.4) fL Immature Gran % (Auto) 1.1 H (0.0-0.4) % Neut % (Auto) 63.4 (45-73) % Lymph % (Auto) 24.2 (20-40) % [place] % (Auto) 6.9 (2-11) % Eos % (Auto) 4.0 (0-4) % Baso % (Auto) 0.4 (0-2) % Lymph # (Auto) 3.6 (1.2-4.9) X10*3/uL [place] # (Auto) 1.0 (0.1-1.2) X10*3/uL Eos # (Auto) 0.6 H (0.0-0.4) X10*3/uL Baso # (Auto) 0.1 (0.0-0.2) X10*3/uL Abs Immat Gran (auto) 0.17 H (0.00-0.03) X10*3/uL Absolute Neuts (auto) 9.5 H (2.0-8.3) x10*3/uL Absolute Nucleated RBC 0.000 (0.0-0.012) X10*3/uL Nucleated RBC % (auto) 0.0 (0.0-0.2) /100WBC ESR 9 (0-15) MM/HR Sodium 143 (135-145) mmol/L Potassium 3.9 (3.3-5.1) mmol/L Chloride 104 (96-108) mmol/L Carbon Dioxide 27 (22-29) mmol/L Anion Gap 16 (12-20) BUN 12 (9-16) mg/dL Creatinine 0.84 (0.5-1.4) mg/dL Estim Creat Clear Calc 199.5 Estimated GFR > 60 Random Glucose 86 (60-115) mg/dL Calcium 10.3 H D (8.4-10.2) mg/dL C-Reactive Protein 0.31 (< or = 0.50) mg/dL Radiology Impression Discussion of test interpretation with radiology: I have reviewed the radiologist's reading. Radiologist Impression: Please see the discussion above External Record Review External record reviewed: Outpatient record, Prior outpatient labs and Prior outpatient radiology Discharge Plan Discharge Clinical Impression: Otitis externa, Otitis media Patient Disposition: Home, Self-Care Instructions: Otitis Externa (ED), How to Use Ear Drops (ED), Ear Infection (ED) Additional Instructions: 1. Deje de bere maria g propios antibi?ticos para esta afecci?n. 2. Le recomiendo encarecidamente que no utilice m?s los auriculares, ya que podr?a volver a infectarse. 3. Complete todo el tratamiento con antibi?ticos que le recetaron y t?melos seg?n lo prescrito. 4. Jovanna un seguimiento con hampton m?dico de atenci?n primaria para aravind reevaluaci?n y un mayor manejo ambulatorio. Se discuti? la posibilidad de aravind derivaci?n a un especialista en o?do, nariz y garganta. Regrese a la davis de emergencias si los s?ntomas empeoran. 1. Stop taking your own antibiotics for this condition. 2. I highly recommend that you no longer use the ear buds as you may be reinfected yourself. 3. Please complete the entire course of antibiotics that you have been prescribed and take these as prescribed. 4. Follow-up with your primary care doctor for re-evaluation and further outpatient management. Discussed the possibility of a referral to an Ear, Nose, Throat specialist. Return to the ER for any worsening symptoms. Prescriptions: New Cipro HC 0.2-1 % drops,suspension 3 drp otic (ears) BID 7 Days Qty: 10 0RF amoxicillin-pot clavulanate 875-125 mg tablet 1 tab PO BID 10 Days Qty: 20 0RF No Action nabumetone 500 mg tablet 500 mg PO BID Qty: 30 0RF acetaminophen 500 mg tablet 500 - 1,000 mg PO Q6H PRN (Reason: pain) Qty: 30 0RF diclofenac sodium [Voltaren Arthritis Pain] 1 % gel 2 g topical QID Qty: 100 0RF Rx Instructions: apply to single elbow, wrist or hand; for hand includes palm/fingers/back of hand cyclobenzaprine 5 mg tablet 5 mg PO BEDTIME Qty: 14 0RF Referrals: Po,Danitza Dickinson MD [Primary Care Provider] - Print Language: Arabic
[2023-01-16 19:23] VITALS: BP 126/76; PULSE 73; RESP 16; TEMP 37; O2SAT 97; BMI 35.5
[2023-01-16 20:32] LABS: MANUAL DIFF FLAG NO
[2023-01-16 20:34] LABS: Basophils Absolute Auto 0.1 X10*3/uL (0.0-0.2); Basophils Percent Auto 0.4 % (0-2); Eosinophils Absolute Auto 0.6 X10*3/uL (0.0-0.4); Hematocrit 42.2 % (42.0-52.0); Hemoglobin 13.9 g/dl (14.0-18.0); Imm Gran Abs Auto 0.17 X10*3/uL (0.00-0.03); Imm Gran Pct Auto 1.1 % (0.0-0.4); Lymphocytes Absolute Auto 3.6 X10*3/uL (1.2-4.9); Lymphocytes Percent Auto 24.2 % (20-40); Mean Corpuscular HGB Conc 32.9 g/dl (31.0-36.0); Mean Corpuscular Hemoglobin 27.6 pg (27.0-33.0); Mean Corpuscular Volume 83.7 fL (80.0-98.0); Monocytes Percent Auto 6.9 % (2-11); Neutrophils Absolute Auto 9.5 x10*3/uL (2.0-8.3); Neutrophils Percent Auto 63.4 % (45-73); Platelet Count 391 X10*3/uL (160-400); Red Blood Count 5.04 X10*6/uL (4.60-5.80); Red Cell Distribution Width 13.5 % (11.0-16.0); White Blood Count 14.9 X10*3/uL (4.8-10.8)
[2023-01-16 20:53] LABS: Anion Gap 16 (12-20); Blood Urea Nitrogen 12 mg/dL (9-16); C Reactive Protein 0.31 mg/dL (< or = 0.50); Calcium 10.3 mg/dL (8.4-10.2); Carbon Dioxide 27 mmol/L (22-29); Chloride 104 mmol/L (96-108); Creatinine Clr Calc Pharmacy 199.5; Estimated Glomerular Filt Rate > 60; Glucose Random 86 mg/dL (60-115); Potassium 3.9 mmol/L (3.3-5.1); Sodium 143 mmol/L (135-145)
[2023-01-16 21:38] LABS: Erythrocyte Sedimentation Rate 9 MM/HR (0-15)
[2023-01-16 22:28] VITALS: BP 137/83; PULSE 68; RESP 19; TEMP 36.9; O2SAT 100
== END 2023-01-16 22:34 | disposition home or self-care (01) ==
PROVIDERS: Physician Assistant; Emergency Provider Student in an Organized Health Care Education/Training Program; PCP Internal Medicine
DX: H60.91 Unspecified otitis externa, right ear (principal); H66.91 Otitis media, unspecified, right ear; H92.01 Otalgia, right ear
CPT/HCPCS: 36415; 70481; 80048; 85025; 85652; 86140; 99282; 99284

== ENCOUNTER 2023-07-24 14:30 | Emergency (ER) | payer MEDICAID, SELFPAY ==
[2023-07-24 16:14] VITALS: BP 133/82; PULSE 95; RESP 18; TEMP 36.7; O2SAT 100; BMI 37.5
--- NOTE | 2023-07-24 16:15 | ED_ITS ---
HPI - Nausea/Vomiting/Diarrhea General Chief complaint: Nausea/Vomiting/Diarrhea Stated complaint: Vomiting Related Data Previous Rx's ?Medication ?Instructions ?Recorded acetaminophen 500 mg tablet 500 - 1,000 mg (1 - 2 x 500 mg) PO 08/03/21 Q6H PRN pain #30 tabs cyclobenzaprine 5 mg tablet 5 mg PO BEDTIME #14 tabs 08/03/21 diclofenac sodium 1 % topical gel 2 g topical QID #100 grams 08/03/21 (Voltaren Arthritis Pain) nabumetone 500 mg tablet 500 mg PO BID #30 tabs 08/03/21 amoxicillin 875 mg-potassium 1 tab PO BID 10 days #20 tabs 01/16/23 clavulanate 125 mg tablet ciprofloxacin 0.2 %-hydrocortisone 3 drp otic (ears) BID 7 days #10 mL 01/16/23 1 % ear drops,suspension (Cipro HC) Allergies Allergy/AdvReac Type Severity Reaction Status Date / Time shellfish derived Allergy Anaphylaxis Verified 07/24/23 16:16 seafood AdvReac Dizziness Verified 07/24/23 16:16 [facility] Past Medical History Medical History Asthma Surgical History Hx of bilateral breast reduction surgery Family History Family History Mother Hypertension Panic attacks Mental health disorder Father Hypertension Social History Social History Housing: Apartment Alcohol intake: former Patient Tobacco Use Status: Never used Tobacco e-Cigarette/Vaping Use: Never Used Second Hand Smoke Exposure: No Substance Use Type: Marijuana Advance Directives: No Advance Directives Information Provided: No service: No Current occupational status: employed Current occupational exposures/hazards: No Cognitive needs: No Hearing needs: No Vision needs: No Physical Exam 2 Vital Signs: Vital Signs: Last Vital Signs Temp 98.1 F 07/24/23 16:14 Pulse 95 07/24/23 16:14 Resp 18 07/24/23 16:14 BP 133/82 07/24/23 16:14 Pulse Ox 100 07/24/23 16:14 O2 Del Method Room Air 07/24/23 16:14 BMI result Body Mass Index 37.5 Course Course Course Narrative: This is a Rapid Medical Examination (RME) performed by Johanna Falcon PA-C in triage. Full HPI, ROS, assessment and treatment plan per primary provider in the Main ED. 28-year-old male with history of obesity, anxiety, depression, fatty liver who presents to the ER for evaluation of 1.5 days of upper abdominal pain, nausea, vomiting, diarrhea. No known sick contacts. He reports weakness and dizziness as well. On exam patient awake and alert, No acute distress. has soft abdomen with diffuse moderate tenderness throughout. No rebound or guarding. Normoactive bowel sounds. Not an acute abdomen. Plan: labs, IVF, zofran. imaging deferred to main ER provider Reevaluation(s) Reevaluation #1: Patient eloped prior to full evaluation and treatment. Medical Decision Making Lab Data 07/24/23 17:43 07/24/23 17:43 Labs: Lab Results 07/24/23 Range/Units 17:43 WBC 13.8 H (4.8-10.8) X10*3/uL RBC 5.44 (4.60-5.80) X10*6/uL Hgb 14.8 (14.0-18.0) g/dl Hct 45.1 (42.0-52.0) % MCV 82.9 (80.0-98.0) fL MCH 27.2 (27.0-33.0) pg MCHC 32.8 (31.0-36.0) g/dl RDW 14.0 (11.0-16.0) % Plt Count 345 (160-400) X10*3/uL MPV 9.0 L (9.4-12.4) fL Immature Gran % (Auto) 0.9 H (0.0-0.4) % Neut % (Auto) 79.2 H (45-73) % Lymph % (Auto) 11.6 L (20-40) % [place] % (Auto) 6.4 (2-11) % Eos % (Auto) 1.7 (0-4) % Baso % (Auto) 0.2 (0-2) % Lymph # (Auto) 1.6 (1.2-4.9) X10*3/uL [place] # (Auto) 0.9 (0.1-1.2) X10*3/uL Eos # (Auto) 0.2 (0.0-0.4) X10*3/uL Baso # (Auto) 0.0 (0.0-0.2) X10*3/uL Abs Immat Gran (auto) 0.12 H (0.00-0.03) X10*3/uL Absolute Neuts (auto) 10.9 H (2.0-8.3) x10*3/uL Absolute Nucleated RBC 0.000 (0.0-0.012) X10*3/uL Nucleated RBC % (auto) 0.0 (0.0-0.2) /100WBC Sodium 141 (135-145) mmol/L Potassium 4.2 (3.3-5.1) mmol/L Chloride 103 (96-108) mmol/L Carbon Dioxide 26 (22-29) mmol/L Anion Gap 16 (12-20) BUN 10 (9-16) mg/dL Creatinine 0.83 (0.5-1.4) mg/dL Estim Creat Clear Calc 205.9 Estimated GFR > 60 Random Glucose 98 (60-115) mg/dL Calcium 10.3 H (8.4-10.2) mg/dL Magnesium 2.0 (1.6-2.6) mg/dL Total Bilirubin 1.0 (0.0-1.0) mg/dL Direct Bilirubin 0.3 (0.0-0.5) mg/dL AST 59 H (5-37) U/L ALT 134 H (0-40) U/L Alkaline Phosphatase 60 (39-117) U/L Total Protein 8.8 H (6.5-8.0) g/dL Albumin 4.6 (3.5-5.0) g/dL Lipase 13 (8-78) U/L Discharge Plan Discharge Clinical Impression: Nausea & vomiting Patient Disposition: Left W/O Completing Treatment Prescriptions: No Action Cipro HC 0.2-1 % drops,suspension 3 drp otic (ears) BID 7 Days Qty: 10 0RF amoxicillin-pot clavulanate 875-125 mg tablet 1 tab PO BID 10 Days Qty: 20 0RF nabumetone 500 mg tablet 500 mg PO BID Qty: 30 0RF acetaminophen 500 mg tablet 500 - 1,000 mg PO Q6H PRN (Reason: pain) Qty: 30 0RF diclofenac sodium [Voltaren Arthritis Pain] 1 % gel 2 g topical QID Qty: 100 0RF Rx Instructions: apply to single elbow, wrist or hand; for hand includes palm/fingers/back of hand cyclobenzaprine 5 mg tablet 5 mg PO BEDTIME Qty: 14 0RF Discharge Date/Time: 07/24/23 22:33
[2023-07-24 17:48] LABS: MANUAL DIFF FLAG NO
[2023-07-24 18:02] LABS: Basophils Percent Auto 0.2 % (0-2); Eosinophils Absolute Auto 0.2 X10*3/uL (0.0-0.4); Eosinophils Percent Auto 1.7 % (0-4); Hematocrit 45.1 % (42.0-52.0); Hemoglobin 14.8 g/dl (14.0-18.0); Imm Gran Abs Auto 0.12 X10*3/uL (0.00-0.03); Imm Gran Pct Auto 0.9 % (0.0-0.4); Lymphocytes Absolute Auto 1.6 X10*3/uL (1.2-4.9); Lymphocytes Percent Auto 11.6 % (20-40); Mean Corpuscular HGB Conc 32.8 g/dl (31.0-36.0); Mean Corpuscular Hemoglobin 27.2 pg (27.0-33.0); Mean Corpuscular Volume 82.9 fL (80.0-98.0); Monocytes Absolute Auto 0.9 X10*3/uL (0.1-1.2); Monocytes Percent Auto 6.4 % (2-11); Neutrophils Absolute Auto 10.9 x10*3/uL (2.0-8.3); Neutrophils Percent Auto 79.2 % (45-73); Platelet Count 345 X10*3/uL (160-400); Red Blood Count 5.44 X10*6/uL (4.60-5.80); White Blood Count 13.8 X10*3/uL (4.8-10.8)
[2023-07-24 18:09] LABS: Alanine Aminotransferase 134 U/L (0-40); Albumin Level 4.6 g/dL (3.5-5.0); Alkaline Phosphatase 60 U/L (39-117); Anion Gap 16 (12-20); Aspartate Amino Transferase 59 U/L (5-37); Bilirubin Direct 0.3 mg/dL (0.0-0.5); Blood Urea Nitrogen 10 mg/dL (9-16); Calcium 10.3 mg/dL (8.4-10.2); Carbon Dioxide 26 mmol/L (22-29); Chloride 103 mmol/L (96-108); Creatinine Clr Calc Pharmacy 205.9; Estimated Glomerular Filt Rate > 60; Glucose Random 98 mg/dL (60-115); Lipase 13 U/L (8-78); Potassium 4.2 mmol/L (3.3-5.1); Sodium 141 mmol/L (135-145); Total Protein 8.8 g/dL (6.5-8.0)
== END 2023-07-24 22:33 | disposition left against medical advice (07) ==
PROVIDERS: Physician Assistant; Emergency Provider Emergency Medicine; PCP Internal Medicine
DX: R11.2 Nausea with vomiting, unspecified (principal)
CPT/HCPCS: 36415; 80048; 80076; 83690; 83735; 85025; 99281; 99283

== ENCOUNTER 2024-07-03 22:28 | Emergency (ER) | payer MEDICAID, SELFPAY ==
--- NOTE | 2024-07-03 | ECG_ITS ---
Test Reason : chest pain Blood Pressure : */* mmHG Vent. Rate : 99 BPM Atrial Rate : 99 BPM P-R Int : 144 ms QRS Dur : 92 ms QT Int : 328 ms P-R-T Axes : 63 42 52 degrees QTcB Int : 420 ms Normal sinus rhythm Normal ECG When compared with ECG of 20-Aug-2022 20:34, No significant change was found Referred By: Generic ED Physician Electronically Signed By: GAVIN YING MD
[2024-07-03 22:44] VITALS: BP 137/84; PULSE 103; RESP 18; TEMP 36.8; O2SAT 98; BMI 41.6
[2024-07-03 23:15] LABS: MANUAL DIFF FLAG NO
[2024-07-03 23:16] LABS: Basophils Absolute Auto 0.1 X10*3/uL (0.0-0.2); Basophils Percent Auto 0.6 % (0-2); Eosinophils Absolute Auto 0.4 X10*3/uL (0.0-0.4); Eosinophils Percent Auto 3.2 % (0-4); Hematocrit 40.8 % (42.0-52.0); Hemoglobin 13.4 g/dl (14.0-18.0); Imm Gran Abs Auto 0.22 X10*3/uL (0.00-0.03); Imm Gran Pct Auto 1.6 % (0.0-0.4); Lymphocytes Absolute Auto 3.9 X10*3/uL (1.2-4.9); Lymphocytes Percent Auto 28.5 % (20-40); Mean Corpuscular HGB Conc 32.8 g/dl (31.0-36.0); Mean Corpuscular Hemoglobin 26.9 pg (27.0-33.0); Mean Corpuscular Volume 81.9 fL (80.0-98.0); Mean Platelet Volume 8.9 fL (9.4-12.4); Neutrophils Absolute Auto 8.2 x10*3/uL (2.0-8.3); Neutrophils Percent Auto 59.1 % (45-73); Platelet Count 342 X10*3/uL (160-400); Red Blood Count 4.98 X10*6/uL (4.60-5.80); Red Cell Distribution Width 14.6 % (11.0-16.0); White Blood Count 13.8 X10*3/uL (4.8-10.8)
[2024-07-03 23:37] LABS: Alanine Aminotransferase 200 U/L (0-40); Albumin Level 4.2 g/dL (3.5-5.0); Alkaline Phosphatase 94 U/L (39-117); Aspartate Amino Transferase 133 U/L (5-37); Bilirubin Total 0.2 mg/dL (0.0-1.0); Blood Urea Nitrogen 12 mg/dL (9-16); Calcium 9.9 mg/dL (8.4-10.2); Creatinine Clr Calc Pharmacy 182.6; Estimated Glomerular Filt Rate > 60; Glucose Random 194 mg/dL (60-115); Troponin-I High Sensitivity < 2.7 ng/L (<3.5-35.0)
[2024-07-03 23:39] LABS: Anion Gap 12 (12-20); Carbon Dioxide 25 mmol/L (22-29); Chloride 106 mmol/L (96-108); Potassium 4.2 mmol/L (3.3-5.1); Sodium 139 mmol/L (135-145)
--- NOTE | 2024-07-04 00:42 | ED.CHESTPAIN ---
HPI - Chest Pain General Chief Complaint: Chest Pain Stated Complaint: chest and left arm pain Time Seen by Provider: 07/04/24 00:33 Source: patient Mode of arrival: ambulatory Limitations: no limitations History of Present Illness ED Provider: HPI narrative: Patient has no prior cardiac history no risk factor does have history of anxiety and depression with a history of frequent chest pains comes here for 3 weeks intermittent left-sided chest pain with left hand tingling pain lasting only for few minutes no shortness of breath no cough no fever Related Data Previous Rx's ?Medication ?Instructions ?Recorded acetaminophen 500 mg tablet 500 - 1,000 mg (1 - 2 x 500 mg) PO 08/03/21 Q6H PRN pain #30 tabs cyclobenzaprine 5 mg tablet 5 mg PO BEDTIME #14 tabs 08/03/21 diclofenac sodium 1 % topical gel 2 g topical QID #100 grams 08/03/21 (Voltaren Arthritis Pain) nabumetone 500 mg tablet 500 mg PO BID #30 tabs 08/03/21 amoxicillin 875 mg-potassium 1 tab PO BID 10 days #20 tabs 01/16/23 clavulanate 125 mg tablet ciprofloxacin 0.2 %-hydrocortisone 3 drp otic (ears) BID 7 days #10 mL 01/16/23 1 % ear drops,suspension (Cipro HC) Allergies Allergy/AdvReac Type Severity Reaction Status Date / Time shellfish derived Allergy Anaphylaxis Verified 07/03/24 22:46 seafood AdvReac Dizziness Verified 07/03/24 22:46 Review of Systems Review of Systems: Yes all other systems are reviewed and are negative PMFSH Past Medical History Medical History Asthma Surgical History Hx of bilateral breast reduction surgery Family History Family History Mother Hypertension Panic attacks Mental health disorder Father Hypertension Social History Social History Housing: Apartment Alcohol intake: former Patient Tobacco Use Status: Never used Tobacco e-Cigarette/Vaping Use: Never Used Second Hand Smoke Exposure: No Substance Use Type: Marijuana Advance Directives: No Advance Directives Information Provided: Yes Do you have a plan to hurt others: No Plan service: No Current occupational status: employed Current occupational exposures/hazards: No Cognitive needs: No Hearing needs: No Vision needs: No Physical Exam Vital Signs: Vital Signs: Last Vital Signs Temp 98.2 F 07/03/24 22:44 Pulse 103 H 07/03/24 22:44 Resp 18 07/03/24 22:44 BP 137/84 07/03/24 22:44 Pulse Ox 98 07/03/24 22:44 O2 Del Method Room Air 07/03/24 22:44 BMI result Body Mass Index 41.6 Appearance: Alert. Oriented X3. No acute distress. Eyes: PERRLA, No Nystagmus ENT: Pharynx normal. Oral Mucosa moist Neck: Normal inspection. Neck supple. CVS: Normal heart rate and rhythm. Pulses normal. Respiratory: No respiratory distress. Equal air entry bilateral, no wheezing/rales/rhonchi Abdomen: Soft and nontender. Bowel sounds are present, no mass palpable, no CVA tenderness Skin: Skin warm and dry. Normal skin color. Normal skin turgor. Extremities: No lower extremity edema. No calf tenderness Neuro: Oriented X 3. No motor deficit. No sensory deficit.No cerebellar signs , cranial nerves II-XII intact Medical Decision Making Medical Decision Making MDM Narrative: Patient with heart score of 0 with atypical chest pain mostly in the right side EKG normal cardiac enzymes negative discharge patient home for atypical chest pain Lab Data [facility] Lab Attestation statement: I reviewed the patient's lab results. 07/03/24 23:02 07/03/24 23:02 Labs: Lab Results 07/03/24 Range/Units 23:02 WBC 13.8 H (4.8-10.8) X10*3/uL RBC 4.98 (4.60-5.80) X10*6/uL Hgb 13.4 L (14.0-18.0) g/dl Hct 40.8 L (42.0-52.0) % MCV 81.9 (80.0-98.0) fL MCH 26.9 L (27.0-33.0) pg MCHC 32.8 (31.0-36.0) g/dl RDW 14.6 (11.0-16.0) % Plt Count 342 (160-400) X10*3/uL MPV 8.9 L (9.4-12.4) fL Immature Gran % (Auto) 1.6 H (0.0-0.4) % Neut % (Auto) 59.1 (45-73) % Lymph % (Auto) 28.5 (20-40) % [place] % (Auto) 7.0 (2-11) % Eos % (Auto) 3.2 (0-4) % Baso % (Auto) 0.6 (0-2) % Lymph # (Auto) 3.9 (1.2-4.9) X10*3/uL [place] # (Auto) 1.0 (0.1-1.2) X10*3/uL Eos # (Auto) 0.4 (0.0-0.4) X10*3/uL Baso # (Auto) 0.1 (0.0-0.2) X10*3/uL Abs Immat Gran (auto) 0.22 H (0.00-0.03) X10*3/uL Absolute Neuts (auto) 8.2 (2.0-8.3) x10*3/uL Absolute Nucleated RBC 0.000 (0.0-0.012) X10*3/uL Nucleated RBC % (auto) 0.0 (0.0-0.2) /100WBC Sodium 139 (135-145) mmol/L Potassium 4.2 (3.3-5.1) mmol/L Chloride 106 (96-108) mmol/L Carbon Dioxide 25 (22-29) mmol/L Anion Gap 12 (12-20) BUN 12 (9-16) mg/dL Creatinine 0.98 (0.5-1.4) mg/dL Estim Creat Clear Calc 182.6 Estimated GFR > 60 Random Glucose 194 H (60-115) mg/dL Calcium 9.9 (8.4-10.2) mg/dL Total Bilirubin 0.2 (0.0-1.0) mg/dL AST 133 H (5-37) U/L ALT 200 H (0-40) U/L Alkaline Phosphatase 94 (39-117) U/L Troponin I High Sens < 2.7 (<3.5-35.0) ng/L Total Protein 8.0 (6.5-8.0) g/dL Albumin 4.2 (3.5-5.0) g/dL Independent Interpretation I performed an independent interpretation of an: EKG Interpretation: Normal sinus rhythm with heart rate of 99 beats per minute normal interval normal axis no acute ST-T changes no acute ischemia impression normal EKG Discharge Plan Discharge Clinical Impression: Atypical chest pain Patient Disposition: Home, Self-Care Instructions: Chest Pain (ED) Additional Instructions: Your chest pain is likely noncardiac Your blood workup is negative for acute Follow with your PCP Prescriptions: No Action Cipro HC 0.2-1 % drops,suspension 3 drp otic (ears) BID 7 Days Qty: 10 0RF amoxicillin-pot clavulanate 875-125 mg tablet 1 tab PO BID 10 Days Qty: 20 0RF nabumetone 500 mg tablet 500 mg PO BID Qty: 30 0RF acetaminophen 500 mg tablet 500 - 1,000 mg PO Q6H PRN (Reason: pain) Qty: 30 0RF diclofenac sodium [Voltaren Arthritis Pain] 1 % gel 2 g topical QID Qty: 100 0RF Rx Instructions: apply to single elbow, wrist or hand; for hand includes palm/fingers/back of hand cyclobenzaprine 5 mg tablet 5 mg PO BEDTIME Qty: 14 0RF Discharge Date/Time: 07/04/24 01:50 Print Language: Luxembourger
--- NOTE | 2024-07-04 01:48 | PC.NURSE ---
provider into discuss plan of care, prior to given pt discharge papers pt left, unable to review discharge.
== END 2024-07-04 01:50 | disposition home or self-care (01) ==
PROVIDERS: Emergency Provider Internal Medicine; PCP Internal Medicine
DX: R07.89 Other chest pain (principal); M79.602 Pain in left arm; Z79.899 Other long term (current) drug therapy
CPT/HCPCS: 36415; 80053; 84484; 85025; 93005; 99283

== ENCOUNTER → 2024-07-03 22:37 | Outpatient (BNV) | payer MEDICAID, SELFPAY | PROVIDERS: Emergency Provider Internal Medicine; PCP Internal Medicine; Visit Provider Internal Medicine Cardiovascular Disease | DX: R07.9 Chest pain, unspecified (principal) | CPT/HCPCS: 93010 ==